=== PATIENT | male | born 1985 | race Caucasian/White ===

== ENCOUNTER 2016-11-20 16:45 | Emergency (ER) | payer OTHER ==
[2016-11-20 17:03] VITALS: RESP 14; TEMP 98
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
== END 2016-11-20 17:44 | disposition home or self-care (01) ==
LOC: ER 16:45
DX: Z20.9 Contact with and (suspected) exposure to unspecified communicable disease (principal); Y99.0 Civilian activity done for income or pay
CPT/HCPCS: 99282